=== PATIENT | female | born 2005 | race Caucasian/White ===

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

== ENCOUNTER → 2025-01-02 09:25 | Outpatient (BNVA) | payer SELFPAY | PROVIDERS: PCP Pediatrics | DX: Z02.89 Encounter for other administrative examinations (principal) ==